=== PATIENT | female | born 1945 | race Caucasian/White ===

== ENCOUNTER 2018-07-02 18:06 | Emergency (ER) | payer MEDICARE, BC ==
--- NOTE | 2018-07-02 18:15 | Emergency Department Record ---
History of Present Illness - General Chief Complaint: Fall Injury Stated Complaint: FALL Time Seen by Provider: 07/02/18 18:10 Source: Patient, EMS Mode of Arrival: EMS Limitations: No limitations - History of Present Illness Initial Comments: 73 yo female presents to ED for evaluation following a fall with injury to the back of her head. Patient was at gnosticist singing when she stepped down from a riser missing a step resulting in fall. Patient denies LOC, denies neck pain, extremity weakness, numbness, or tingling symptoms. Patient denies injury other than to her head. Patient denies the use of anticoagulation medications. MD Complaint: Fall Onset/Timin -: Minutes(s) Fall From: Standing When Fall Occurred: Just prior to arrival Fall Witnessed: Yes, by bystander Place Fall Occurred: Other (gnosticist) Loss of Consciousness: None Prolonged Down Time?: No Symptoms Prior to Fall: None Location: Head Severity: Moderate Quality: Aching Associated Symptoms: Denies - Riana Coma Scale Eye Response: (4) Open spontaneously Motor Response: (6) Obeys commands Verbal Response: (5) Oriented [place] Total: 15 - Related Data Allergies Allergy/AdvReac Type Severity Reaction Status Date / Time acetaminophen [From Tylenol] Allergy Severe pt has Verified 07/02/18 18:13 kidney disease aspirin Allergy Severe pt has Verified 07/02/18 18:13 kidney disease NSAIDS (Non-Steroidal Allergy Severe pt has Verified 07/02/18 18: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 Sulfa (Sulfonamide Allergy Intermediate RASH Verified 07/02/18 18:13 Antibiotics) amoxicillin Allergy RASH Verified 07/02/18 18:13 Review of Systems Constitutional: Denies: Chills, Fever, Malaise, Night sweats Eyes: Denies: Eye discharge, Eye pain ENT: Denies: Congestion, Ear pain, Epistaxis Respiratory: Denies: Cough, Dyspnea Cardiovascular: Denies: Chest pain, Dyspnea on exertion Endocrine: Denies: Fatigue, Heat or cold intolerance Gastrointestinal: Denies: Abdominal pain, Nausea, Vomiting Genitourinary: Denies: Incontinence, Retention Musculoskeletal: Denies: Arthralgia, Back pain Skin: Denies: Bruising, Change in color Neurological: Reports: Headache. Denies: Abnormal gait, Confusion, Numbness, Tingling, Tremors Psychiatric: Denies: Anxiety Hematological/Lymphatic: Denies: Anemia, Blood Clots Past Medical History - SOCIAL HISTORY Smoking Status: Never smoker Drug Use: None - RESPIRATORY Hx Respiratory Disorders: No - CARDIOVASCULAR Hx Cardio Disorders: Yes Hx Hypertension: Yes - NEURO Hx Neuro Disorders: No - GI Hx GI Disorders: No - Hx Genitourinary Disorders: Yes Hx Renal Disease: Yes (stage 3) Hx UTI: Yes - ENDOCRINE Hx Endocrine Disorders: Yes Hx Diabetes: Yes - MUSCULOSKELETAL Hx Musculoskeletal Disorders: Yes Hx Arthritis: Yes - PSYCH Hx Psych Problems: No - HEMATOLOGY/ONCOLOGY Hx Hematology/Oncology Disorders: No Physical Exam - General General Appearance: Alert, Oriented x3, Cooperative, Mild distress Limitations: No limitations - Head Head exam: Normocephalic, Other (Mild STS to the posterior scalp, no laceration appreciated.) Head exam detail: Abrasion, Contusion, General tenderness (posterior scalp). negative: Galdamez's sign, Hematoma, Laceration - Eye Eye exam: Normal appearance. negative: Conjunctival injection, Periorbital swelling, Periorbital tenderness, Scleral icterus - ENT Ear exam: negative: Auricular hematoma, Auricular trauma Nasal Exam: negative: Active bleeding, Discharge, Dried blood, Foreign body Mouth exam: negative: Drooling, Laceration, Muffled voice, Tongue elevation - Neck Neck exam: Other (Cervical collar in place) - Respiratory Respiratory exam: Normal lung sounds bilaterally. negative: Respiratory distress, Rhonchi, Stridor, Wheezes - Cardiovascular Cardiovascular Exam: Regular rate, Normal rhythm, Normal heart sounds - GI/Abdominal GI/Abdominal exam: Soft. negative: Rebound, Rigid, Tenderness - Rectal Rectal exam: Deferred - exam: Deferred - Extremities Extremities exam: Normal inspection. negative: Calf tenderness, Pedal edema, Tenderness - Back Back exam: Denies: CVA tenderness (R), CVA tenderness (L) - Neurological Neurological exam: Alert, Normal gait, Oriented X3 - Psychiatric Psychiatric exam: Normal affect, Normal mood - Skin Skin exam: Normal color. negative: Abrasion Type of lesion: negative: abrasion Course - Reevaluation(s) Reevaluation #1: 07/02/18 18:51 EKG: NSR 90 Normal axis, normal intervals No acute ST-T wave changes CT Brain: No acute traumatic injury is identified CT Cervical Spine: No acute traumatic fracture or subluxation Degenerative changes are present. Cervical spine was cleared following CT imaging results Patient was updated on all results, appears stable for discharge with family members at the bedside. Disposition Disposition: Discharge Clinical Impression: Fall from standing Qualifiers: Encounter type: initial encounter Qualified Code(s): W19.XXXA - Unspecified fall, initial encounter Contusion of head Qualifiers: Encounter type: initial encounter Contusion of head detail: scalp Qualified Code(s): S00.03XA - Contusion of scalp, initial encounter Disposition: Home, Self-Care Condition: (2) Stable Instructions: Head Injury (ED) Additional Instructions: Return to ED if your symptoms worsen or if you have any concerns. Follow-up with your family doctor in 3-5 days as directed. Forms: Patient Portal Access Time of Disposition: 18:53 Quality - Quality Measures Quality Measures: N/A, Blunt Head Trauma (>2yr) - Riana Coma Scale Eye Response: (4) Open spontaneously Motor Response: (6) Obeys commands Verbal Response: (5) Oriented Riana Total: 15 - Blunt Head Trauma - Adult Quality Measure: Measure #415: Utilization of CT for Minor Blunt Head Trauma ICD10 Codes Entered: Yes Was CT ordered: Yes Does Patient Have Any of the Following: Taking Antiplatelet Med [place] Score: [address] for Minor Blunt Head Trauma: Patient Excluded [G9531] Additional Inclusion Criteria: Within 24hrs (AND) GCS of 15 (AND) CT ordered. [ G9530] Indications For CT: Age 65 Years and Older - Blood Pressure Screening Does Patient Have Any of the Following: Active Dx of HTN Blood Pressure Classification: Hypertensive Reading Systolic Measurement: 141 Diastolic Measurement: 73 Screening for High Blood Pressure: Patient Exclusion, Hx of HTN [G9744]
--- NOTE | 2018-07-03 21:45 | CT SCAN REPORT ---
EXAM: CT SCAN HEAD WO CONTRAST HISTORY: INJURY. TECHNIQUE: Sequential axial images were obtained from the foramen magnum to the vertex without contrast administration. FINDINGS: Th brain volume is normal. No large territorial infarct, hemorrhage, mass effect, or midline shift. The orbits, paranasal sinuses and mastoid air cells are normal. There is minimal left posterior parietal soft tissue swelling. No underlying osseous abnormality. IMPRESSION: NO ACUTE INTRACRANIAL ABNORMALITY IS APPRECIATED. JOB NUMBER: [id number] MTDD
--- NOTE | 2018-07-03 21:49 | CT SCAN REPORT ---
EXAM: CT SCAN CERVICAL SPINE WO CONTRAST HISTORY: NECK PAIN. TECHNIQUE: Sequential axial images were obtained through the cervical spine without intravenous contrast administration. Sagittal and coronal reformatted images were performed. FINDINGS: There is multilevel degenerative change. No evidence of fracture, subluxation, or perched facet. IMPRESSION: MULTILEVEL DEGENERATIVE CHANGE. NO EVIDENCE OF FRACTURE, SUBLUXATION, OR PERCHED FACET. JOB NUMBER: [id number] MTDD
== END 2018-07-02 19:21 | disposition home or self-care (01) ==
LOC: ER 18:06
DX: S00.03XA Contusion of scalp, initial encounter (principal); M54.2 Cervicalgia; I10 Essential (primary) hypertension; E11.9 Type 2 diabetes mellitus without complications; I48.91 Unspecified atrial fibrillation; W01.198A Fall on same level from slipping, tripping and stumbling with subsequent striking against other object, initial encounter; Y92.22 Religious institution as the place of occurrence of the external cause
CPT/HCPCS: 70450; 72125; 93005; 93010; 99284